=== PATIENT | female | born 1985 | race American Indian/Alaskan Native ===

== ENCOUNTER 2020-10-22 17:52 | Inpatient (IN) | payer OTHER ==
[~2020-10-22] VITALS: Ht 157.5 cm; Wt 94.2 kg
[2020-10-22 18:51] LABS: BASOPHILS ABSOLUTE AUTO 0.11 K/mm3 (0.00-0.23); BASOPHILS PERCENT AUTO 1 % (0-2); EOSINOPHILS ABSOLUTE AUTO 0.66 K/mm3 (0.00-0.68); EOSINOPHILS PERCENT AUTO 4 % (0-6); Hematocrit 40.5 % (33.0-51.0); Hemoglobin 12.6 g/dL (11.5-16.0); IMMATURE GRAN ABSOLUTE AUTO 0.09 K/mm3 (0.00-0.10); IMMATURE GRAN PERCENT AUTO 1 % (0-1); LYMPHOCYTES ABSOLUTE AUTO 2.62 K/mm3 (0.84-5.20); LYMPHOCYTES PERCENT AUTO 15 % (21-46); MONOCYTES ABSOLUTE AUTO 0.71 K/mm3 (0.16-1.47); MONOCYTES PERCENT AUTO 4 % (4-13); Mean Corpuscular HGB 27.6 pg (26.0-34.0); Mean Corpuscular HGB Conc 31.1 g/dL (31.5-36.5); Mean Corpuscular Volume 89 fL (80-100); Mean Platelet Volume 8.4 fL (9.1-12.4); NEUTROPHILS PERCENT AUTO 77 % (41-73); Platelet Count 622 K/mm3 (150-400); RDW Coefficient Variation 14.6 % (11.7-14.2); RDW Standard Deviation 47.6 fL (35.1-46.3); Red Blood Cell Count 4.56 M/mm3 (3.80-5.20); White Blood Cell Count 17.89 K/mm3 (4.00-11.30)
[2020-10-22 19:07] LABS: Alanine Aminotransfer (ALT/SGP 67 U/L (12-78); Albumin, Blood 3.3 g/dL (3.4-5.0); Albumin/Globulin Ratio 0.8 (0.8-1.8); Alk Phos 97 U/L (50-136); Anion Gap 7 mmol/L (6-16); Aspartate Aminotrans (AST/SGOT 68 U/L (12-37); Bilirubin, Total 0.4 mg/dL (0.1-1.0); Blood Urea Nitrogen 5 mg/dL (8-24); Bun/Creatinine Ratio 7.9 (12.0-20.0); CO2, Blood 23 mmol/L (21-32); Calcium, Blood 8.7 mg/dL (8.5-10.1); Chloride, Blood 110 mmol/L (98-108); Creatinine, Blood 0.63 mg/dL (0.40-1.00); Globulin, Blood 4.3 g/dL (2.2-4.0); Glomerular Filtration Rate >60 (60-); Glucose, Blood 101 mg/dL (70-99); Potassium, Blood 3.7 mmol/L (3.5-5.5); Sodium, Blood 140 mmol/L (136-145); Total Protein, Blood 7.6 g/dL (6.4-8.2)
--- NOTE | 2020-10-23 03:04 | NUR ---
ADMIT NOTE HANDOFF RECEIVED FROM ER NURSE KATHY. PT TRANSPORTED TO FLOOR VIA GURNEY. PERSONAL POSSESSIONS WITH PT. PT ORIENTED TO UNIT. CALL BUTTON WITHIN REACH.
--- NOTE | 2020-10-23 04:41 | NUR ---
SHIFT SUMMARY ADMITTED THIS SHIFT FOR ABD WALL ABSCESS. FULL CODE. SHE HAS A HX OF HIDRADEITIS SUPPURATIVA - WHICH HAS LED TO PREVIOUS ABSCESSES THAT SHE HAS MANAGED HERSELF AT HOME. I&D OF THIS ABSCESS PERFORMED IN ER. WOUND CULTURES SENT TO LAB. IV ANTIBIOTICS ARE SCHEDULED. TELEMETRY: TACH @ 113 BPM. NS INFUSING @ 100 ML/HR. TORADOL GIVEN 1X FOR PAIN THIS SHIFT.
--- NOTE | 2020-10-23 18:34 | NUR ---
AMA/DISCHARGE PT WANTING TO GO HOME. THIS RN EDUCATED PT ON RISKS OF LEAVING WITHOUT FINDING THE RESULTS OF THE WOUND CULTURES. DR. JAIMES WAS NOTIFIED AND CAME AND TALKED WITH PT AND ALSO EDUCATED PT ON RISKS OF LEAVING AND ASKED WHAT WE COULD DO A HOSPITAL TO GET HER TO STAY FOR RESULTS. PT REPORTS SHE UNDERSTANDS HER RISKS OF LEAVING AND STILL WOULD LIKE TO GO HOME TO SEE HER FAMILY. DR. JAIMES WRITING PRESCRIPTION FOR ANTIBIOTIC AND PAIN. WAITING FOR ORDERS.
[2020-10-23] MEDS ORDERED: CLIN150 PO (20:01)
[2020-10-23] MEDS ORDERED: BANATROL PLUS1 EAC1 PO (20:03)
[2020-10-23] MEDS ORDERED: Percocet 5-3251 EACH PO (20:03)
--- NOTE | 2020-10-23 20:25 | NUR ---
PT LEFT AMA WE DID PERFORM A DISCHARGE SO TO SEND THE PT HOME WITH PRESCRIPTIONS FOR ANTIBIOTICS, BANANATROL, AND PAIN MEDICATION. SHE DOES HAVE INSTRUCTIONS AND PHONE NUMBER FOR [facility] FOR FOLLOW UP APPOINTMENT. IV REMOVED ON PREVIOUS SHIFT. PERSONAL POSSESSIONS WITH PT.
== END 2020-10-23 20:23 | disposition left against medical advice (07) | DRG 872 ==
LOC: ER 17:52 → MEDS 23:18 → ER 10-23 00:10 → MEDS 10-23 01:16
PROVIDERS: Emergency Medicine; ADMIT Internal Medicine
PROC: 0H97XZZ Drainage of Abdomen Skin, External Approach (ICD-10-PCS; principal; 2020-10-22)
DX: A41.9 Sepsis, unspecified organism (principal); L03.311 Cellulitis of abdominal wall; L02.211 Cutaneous abscess of abdominal wall; M79.3 Panniculitis, unspecified; L73.2 Hidradenitis suppurativa; Z68.35 Body mass index [BMI] 35.0-35.9, adult; F17.210 Nicotine dependence, cigarettes, uncomplicated; E66.9 Obesity, unspecified; Z79.899 Other long term (current) drug therapy; Z90.49 Acquired absence of other specified parts of digestive tract; Z98.890 Other specified postprocedural states; Z98.51 Tubal ligation status; Z90.89 Acquired absence of other organs
CPT/HCPCS: 10060; 80053; 83605; 85025; 87070; 87075; 87077; 87147; 87186; 87205; 93005; 93010; 96365-59; 96375-59; 99284-25; A9270; J1170; J1650; J1885; J2060; J7030